=== PATIENT | male | born 1985 | race Two or more races ===

== ENCOUNTER 2023-02-15 07:52 | Emergency (ER) | payer OTHER ==
[~2023-02-15] VITALS: Ht 185.4 cm; Wt 122.5 kg
[2023-02-15 08:14] VITALS: BP 141/74; TEMP 98.8; O2SAT 100
[2023-02-15] MEDS ORDERED: CEPH500C2 PO (08:29)
[2023-02-15] MEDS ORDERED: SULF1TAB48 PO (08:29)
== END 2023-02-15 08:37 | disposition home or self-care (01) ==
LOC: ER 07:52
DX: L03.116 Cellulitis of left lower limb (principal); L03.115 Cellulitis of right lower limb; R60.0 Localized edema; Z60.2 Problems related to living alone